=== PATIENT | female | born 1945 | race Two or more races ===

== ENCOUNTER 2021-01-01 14:17 | Emergency (ER) | payer MEDICARE, OTHER ==
[~2021-01-01] VITALS: Ht 160 cm; Wt 85.3 kg
[2021-01-01] MEDS ORDERED: FAMOTIDINE/PF INJ 20 MG/2 ML VIAL IV ONE ×2 (14:48→15:00)
[2021-01-01] MEDS ORDERED: MORPHINE SULFATE INJ 4 MG/ML DISP.SYRIN ONE (14:48)
[2021-01-01] MEDS ORDERED: ONDANSETRON HCL/PF 4 MG/2 ML VIAL ONE (14:48)
[2021-01-01 14:53] LABS: BASOPHILS % (AUTO) 1.6 % (0.0-2.0); EOSINOPHILS % (AUTO) 0.3 % (0.0-6.0); HEMATOCRIT 36 % (33-45); HEMOGLOBIN 11.7 g/dL (11.5-14.8); LYMPHOCYTES # (AUTO) 1.5 /CMM (0.8-4.8); MEAN CORPUSCULAR HGB CONC 33 g/dl (31.0-36.0); MEAN CORPUSCULAR VOLUME 80 fL (82-100); MONOCYTES # (AUTO) 0.3 /CMM (0.1-1.30); MONOCYTES % (AUTO) 11.6 % (2.0-12.0); NEUTROPHILS # (AUTO) 1.1 /CMM (1.8-8.9); NEUTROPHILS % (AUTO) 36.5 % (43.0-81.0); PLATELET COUNT (AUTO) 66 /CMM (150-450); RED BLOOD CELL COUNT(AUTO) 4.43 MIL/uL (4.0-5.2); WHITE BLOOD COUNT (AUTO) 2.9 K/uL (4.3-11.0)
[2021-01-01] MEDS ORDERED: IV NS 0.9% 500 ML BAG IV ONE (15:00)
[2021-01-01] MEDS ORDERED: ASPIRIN 325 MG TABLET PO ONE (15:00)
[2021-01-01] MEDS ORDERED: ONDANSETRON HCL/PF 4 MG/2 ML VIAL IVP ONE (15:00)
[2021-01-01] MEDS ORDERED: MORPHINE SULFATE INJ 2 MG/ML DISP.SYRIN IV ONE (15:00)
[2021-01-01 15:09] LABS: CALCIUM, SERUM 8.9 mg/dL (8.5-10.1); CARBON DIOXIDE 28 mmol/L (21-32); CHLORIDE 104 mmol/L (98-107); CREATININE 0.8 mg/dL (0.6-1.3); GLUCOSE 119 mg/dL (74-106); POTASSIUM 3.7 mmol/L (3.5-5.1); SODIUM SERUM 142 mmol/L (136-145); UREA NITROGEN, BLOOD 13 mg/dL (7-18)
[2021-01-01 16:06] LABS: LYMPHOCYTES % (MANUAL) 42 % (16-48); MONOCYTES % (MANUAL) 12 % (0-11.0); NEUTROPHILS % (MANUAL) 46 (42-76)
[2021-01-01] MEDS ORDERED: HYDR-3980 PO (16:10)
[2021-01-01 16:20] VITALS: BP 124/86
[2021-01-01 16:23] LABS: ALBUMIN 3.8 g/dL (3.4-5.0); BILIRUBIN,DIRECT 0.1 mg/dL (0.0-0.2); BILIRUBIN,TOTAL 0.5 mg/dL (0.2-1.0); TOTAL PROTEIN, SERUM 7.4 g/dL (6.4-8.2)
== END 2021-01-01 16:20 | disposition home or self-care (01) ==
LOC: ER 14:22
DX: S22.42XA Multiple fractures of ribs, left side, initial encounter for closed fracture (principal); I44.7 Left bundle-branch block, unspecified; I10 Essential (primary) hypertension; E11.9 Type 2 diabetes mellitus without complications; W01.0XXA Fall on same level from slipping, tripping and stumbling without subsequent striking against object, initial encounter; Y93.89 Activity, other specified; Y92.89 Other specified places as the place of occurrence of the external cause; Y99.8 Other external cause status
CPT/HCPCS: 36415; 71045; 71250; 74176; 80048; 80076; 83690; 84484; 85007; 85025; 93005 ×2; 96374; 96375; 99285; J2405; J3490; J7040; J2270

== ENCOUNTER 2024-02-19 12:02 | Inpatient (IN) | payer MEDICARE, OTHER ==
[~2024-02-19] VITALS: Ht 160 cm; Wt 85.3 kg
[~2024-02-19 12:02] MED LIST: HYDR-3980 PO
[2024-02-19 13:15] LABS: BASOPHILS % (AUTO) 0.6 % (0.0-2.0); EOSINOPHILS % (AUTO) 0.2 % (0.0-6.0); HEMATOCRIT 35 % (33-45); HEMOGLOBIN 11.5 g/dL (11.5-14.8); LYMPHOCYTES % (AUTO) 22.5 % (20.0-44.0); MEAN CORPUSCULAR HEMOGLOBIN 25 PG (26.0-33.0); MEAN CORPUSCULAR HGB CONC 33 g/dl (31.0-36.0); MEAN CORPUSCULAR VOLUME 76 fL (82-100); MONOCYTES # (AUTO) 0.8 K/uL (0.1-1.30); MONOCYTES % (AUTO) 18.2 % (2.0-12.0); NEUTROPHILS # (AUTO) 2.5 K/uL (1.8-8.9); NEUTROPHILS % (AUTO) 58.5 % (43.0-81.0); PLATELET COUNT (AUTO) 73 K/uL (150-450); RED BLOOD CELL COUNT(AUTO) 4.61 MIL/uL (4.0-5.2); RED CELL DISTRIBUTION WIDTH 17.7 % (11.5-15.0); WHITE BLOOD COUNT (AUTO) 4.3 K/uL (4.3-11.0)
[2024-02-19] MEDS ORDERED: CHOL100043 PO (13:20)
[2024-02-19] MEDS ORDERED: FLUT1DIS5 IH (13:20)
[2024-02-19] MEDS ORDERED: AMLO5TAB4 PO (13:20)
[2024-02-19] MEDS ORDERED: METF-440 PO (13:20)
[2024-02-19] MEDS ORDERED: ESOM40CA PO (13:20)
[2024-02-19] MEDS ORDERED: DILT300C57 PO (13:20)
[2024-02-19] MEDS ORDERED: ATEN50TA PO (13:20)
[2024-02-19] MEDS ORDERED: FERR325T28 PO (13:20)
[2024-02-19] MEDS ORDERED: BLOO-1280 IN (13:20)
[2024-02-19] MEDS ORDERED: METOPROLOL TARTRATE 25 MG TABLET ONE (13:21)
[2024-02-19] MEDS ORDERED: METOPROLOL TARTRATE INJ 5 MG/5 ML AMPUL ONE (13:21)
[2024-02-19] MEDS: METOPROLOL TARTRATE INJ 5 MG/5 ML AMPUL IV ONE (13:22)
[2024-02-19] MEDS: METOPROLOL TARTRATE 25 MG TABLET PO ONE (13:22)
[2024-02-19 13:23] LABS: INR 1.09 (0.91-1.10); PARTIAL THROMBOPLASTIN TIME 24.1 SEC (24.3-34.3); PROTHROMBIN TIME 11.2 SECS (9.2-11.1)
[2024-02-19 13:24] LABS: CALCIUM, SERUM 8.7 mg/dL (8.5-10.1); CARBON DIOXIDE 26 mmol/L (21-32); CHLORIDE 102 mmol/L (98-107); CREATININE 0.6 mg/dL (0.6-1.3); GLUCOSE 144 mg/dL (74-106); MAGNESIUM 1.3 mg/dL (1.8-2.4); POTASSIUM 3.4 mmol/L (3.5-5.1); SODIUM SERUM 139 mmol/L (136-145); UREA NITROGEN, BLOOD 8 mg/dL (7-18)
[2024-02-19 13:42] LABS: ALANINE AMINOTRANSFERASE 42 U/L (12-78); ALBUMIN 3.8 g/dL (3.4-5.0); ALKALINE PHOSPHATASE 22 U/L (46-116); ASPARTATE AMINOTRANSFERASE 33 U/L (15-37); BILIRUBIN,DIRECT 0.2 mg/dL (0.0-0.2); BILIRUBIN,TOTAL 0.5 mg/dL (0.2-1.0); NT-PRO BNP 1341 pg/mL (0-125); TOTAL PROTEIN, SERUM 7.1 g/dL (6.4-8.2)
[2024-02-19] MEDS ORDERED: ASPIRIN 325 MG TABLET ONE (14:01)
[2024-02-19] MEDS ORDERED: Magnesium 1GM/D5W 100ML PREMIX 100 ML IV ONE (14:01)
[2024-02-19] MEDS: ASPIRIN 325 MG TABLET PO ONE (14:03)
[2024-02-19] MEDS: Magnesium 1GM/D5W 100ML PREMIX PIGGYBACK IV ONE (14:03)
[2024-02-19 14:20] LABS: THYROID STIMULATING HORMONE 1.453 uIU/mL (0.358-3.74)
[2024-02-19] MEDS ORDERED: DEXTROSE 50%-WATER 50 ML DISP.SYRIN IV PRN (17:30)
[2024-02-19] MEDS ORDERED: HYDROCODONE/APAP 5/325MG TABLET PO PRN (17:30)
[2024-02-19] MEDS ORDERED: MAGNESIUM HYDROXIDE 30 ML UDC PO PRN (17:30)
[2024-02-19] MEDS ORDERED: ZOLPIDEM TARTRATE 5 MG TABLET PO PRN (17:30)
[2024-02-19] MEDS ORDERED: Z GUARD REMEDY 4 OZ OINT TP PRN (17:30)
[2024-02-19] MEDS ORDERED: ONDANSETRON HCL/PF 4 MG/2 ML VIAL IVP PRN (17:30)
[2024-02-19] MEDS ORDERED: MAG HYDROX/AL HYDROX/SIMETH 30 ML UDC PO PRN (17:30)
[2024-02-19] MEDS ORDERED: AMLODIPINE BESYLATE 5 MG TABLET PO SCH (18:00)
[2024-02-19 18:43] LABS: ANISOCYTOSIS 1+; LYMPHOCYTES % (MANUAL) 27 % (16-48); MONOCYTES % (MANUAL) 10 % (0-11.0); NEUTROPHILS % (MANUAL) 63 (42-76); PLATELET ESTIMATE DECREASED
[2024-02-19 20:00] VITALS: BP 144/85; TEMP 97.9; O2SAT 98
[2024-02-19] MEDS ORDERED: ENOXAPARIN SODIUM 40 MG/0.4 ML DISP.SYRIN SQ SCH (21:00)
[2024-02-19] MEDS: ENOXAPARIN SODIUM 80 MG/0.8 ML DISP.SYRIN SQ SCH (22:22)
[2024-02-20] VITALS (11 sets, daily range): BP systolic 142–148; BP diastolic 73–81; TEMP 97.9–98.4; O2SAT 93–99
[2024-02-20] MEDS: BLOOD SUGAR DIAGNOSTIC 1 EACH STRIP IN SCH (01:57)
[2024-02-20] MEDS: INSULIN REGULAR, HUMAN 100 UNIT/ML 3 ML VIAL SQ PRN (02:00)
[2024-02-20] MEDS: ALBUTEROL FS 2.5 MG/3 ML VIAL.NEB NEB SCH (03:30)
[2024-02-20] MEDS: BUDESONIDE RESPULE INH 0.5 MG/2 ML AMPUL.NEB NEB SCH (07:24)
[2024-02-20 07:44] LABS: BASOPHILS % (AUTO) 0.4 % (0.0-2.0); EOSINOPHILS % (AUTO) 0.4 % (0.0-6.0); HEMATOCRIT 32 % (33-45); HEMOGLOBIN 10.5 g/dL (11.5-14.8); LYMPHOCYTES # (AUTO) 1.4 K/uL (0.8-4.8); LYMPHOCYTES % (AUTO) 38.2 % (20.0-44.0); MEAN CORPUSCULAR HEMOGLOBIN 25 PG (26.0-33.0); MEAN CORPUSCULAR HGB CONC 33 g/dl (31.0-36.0); MEAN CORPUSCULAR VOLUME 76 fL (82-100); MONOCYTES # (AUTO) 0.8 K/uL (0.1-1.30); MONOCYTES % (AUTO) 20.6 % (2.0-12.0); NEUTROPHILS # (AUTO) 1.5 K/uL (1.8-8.9); NEUTROPHILS % (AUTO) 40.4 % (43.0-81.0); PLATELET COUNT (AUTO) 69 K/uL (150-450); RED BLOOD CELL COUNT(AUTO) 4.14 MIL/uL (4.0-5.2); RED CELL DISTRIBUTION WIDTH 17.6 % (11.5-15.0); WHITE BLOOD COUNT (AUTO) 3.7 K/uL (4.3-11.0)
[2024-02-20 08:02] LABS: CALCIUM, SERUM 8.7 mg/dL (8.5-10.1); CREATININE 0.7 mg/dL (0.6-1.3); MAGNESIUM 1.6 mg/dL (1.8-2.4); PHOSPHORUS 3.3 mg/dL (2.5-4.9); POTASSIUM 3.1 mmol/L (3.5-5.1)
[2024-02-20] MEDS: Magnesium 1GM/D5W 100ML PREMIX 100 ML IV SCH (08:18)
[2024-02-20] MEDS: PANTOPRAZOLE 40 MG TABLET.DR PO SCH (08:37)
[2024-02-20] MEDS: SPIRONOLACTONE 25 MG TABLET PO SCH (08:37)
[2024-02-20] MEDS: METFORMIN 500 MG TABLET PO SCH (08:37)
[2024-02-20] MEDS: ATORVASTATIN 10 MG TABLET PO SCH (08:37)
[2024-02-20] MEDS: CHOLECALCIFEROL 1,000 UNIT TABLET (VIT D3) PO SCH (08:37)
[2024-02-20] MEDS: ACETAMINOPHEN 325 MG TABLET PO PRN (08:38)
[2024-02-20] MEDS: VALSARTAN 80 MG TABLET PO SCH (08:38)
[2024-02-20] MEDS ORDERED: FERROUS SULFATE (325 MG) 325 MG/TAB TABLET PO SCH (09:00)
[2024-02-20] MEDS ORDERED: ATENOLOL 50 MG TABLET PO SCH (09:00)
[2024-02-20] MEDS ORDERED: DILTIAZEM HCL CD 300 MG PO SCH (09:00)
[2024-02-20] MEDS ORDERED: FLUTICASONE/SALMETEROL 1 DISK IH SCH (09:00)
[2024-02-20 09:15] LABS: MAGNESIUM 1.5 mg/dL (1.8-2.4); PHOSPHORUS 3.3 mg/dL (2.5-4.9)
[2024-02-20 09:31] LABS: THYROID STIMULATING HORMONE 1.901 uIU/mL (0.358-3.74)
[2024-02-20] MEDS: POTASSIUM CHLORIDE 20 MEQ TAB.PRT.SR PO SCH (10:47)
[2024-02-20] MEDS ORDERED: LEVOFLOXACIN 750 MG /D5W 150ML 150 ML IV SCH (11:00)
[2024-02-20] MEDS: diphenhydrAMINE HCL 25 MG CAPSULE PO ONE (12:02)
[2024-02-20] MEDS: METOPROLOL TARTRATE 50 MG TABLET PO SCH (12:39)
[2024-02-20] MEDS: LEVOFLOXACIN (250MG) 250 MG TABLET PO SCH (12:39)
[2024-02-20] MEDS ORDERED: IV NS 0.9% 250 ML IV ONE (15:01)
[2024-02-20] MEDS ORDERED: IOHEXOL-350 100 ML VIAL IV ONE (15:01)
[2024-02-20 16:04] LABS: ANISOCYTOSIS 1+; HYPOCHROMASIA 1+; PLATELET ESTIMATE DECREASED
[2024-02-20 16:05] LABS: OVALOCYTES 1+
== END 2024-02-20 17:05 | disposition left against medical advice (07) | DRG 280 ==
LOC: ER 12:02 → TELE1 18:05
DX: I21.4 Non-ST elevation (NSTEMI) myocardial infarction (principal); J18.9 Pneumonia, unspecified organism; D61.818 Other pancytopenia; I42.9 Cardiomyopathy, unspecified; J98.11 Atelectasis; E87.6 Hypokalemia; D69.6 Thrombocytopenia, unspecified; D50.9 Iron deficiency anemia, unspecified; E83.42 Hypomagnesemia; E11.9 Type 2 diabetes mellitus without complications; E78.5 Hyperlipidemia, unspecified; I11.0 Hypertensive heart disease with heart failure; I48.0 Paroxysmal atrial fibrillation; K21.9 Gastro-esophageal reflux disease without esophagitis; Z79.84 Long term (current) use of oral hypoglycemic drugs; Z88.1 Allergy status to other antibiotic agents; S20.01XA Contusion of right breast, initial encounter; I50.9 Heart failure, unspecified; W01.0XXA Fall on same level from slipping, tripping and stumbling without subsequent striking against object, initial encounter; Y93.9 Activity, unspecified; Y92.009 Unspecified place in unspecified non-institutional (private) residence as the place of occurrence of the external cause; Z79.4 Long term (current) use of insulin; E66.01 Morbid (severe) obesity due to excess calories; Z68.33 Body mass index [BMI] 33.0-33.9, adult; M25.511 Pain in right shoulder; J45.909 Unspecified asthma, uncomplicated
CPT/HCPCS: 36415; 71045-TC; 71250-TC; 73030-TC; 80048-TC; 80061-TC; 80076-TC; 82728-TC; 82962-TC; 83540-TC; 83735-TC; 83880; 84100-TC; 84439-TC; 84443-TC; 84484-TC; 85025-TC; 85730-TC; 93307-TC; 94799-TC; 97110-TC; 97116-TC; 97530-TC; G0378; J1650; J1815; J1956; J3475; J3490; J7030; J7050; Q0163; Q9967